=== PATIENT | female | born 1965 | race Caucasian/White ===

== ENCOUNTER 2017-10-14 10:53 | Emergency (ER) | payer OTHER ==
[~2017-10-14] VITALS: Ht 160 cm; Wt 55.8 kg
--- NOTE | 2017-10-14 11:05 | ED CARDIAC/CP/PALPITATIONS ---
History of Present Illness General Chief Complaint: Headache Stated Complaint: SORENSON STATES HEART IS RACING Source: patient Exam Limitations: no limitations Vital Signs & Intake/Output Vital Signs & Intake/Output Vital Signs Date Time Temp Pulse Resp B/P B/P Pulse O2 O2 Flow FiO2 Mean Ox Delivery Rate 10/14 1428 64 126/70 10/14 1203 99 Room Air 10/14 1058 98.4 71 18 139/84 99 Room Air Allergies Coded Allergies: NO KNOWN ALLERGIES (03/15/15) Triage Note: 52F REPORTS FEELING LIGHTHEADED AND FOGGY X30 MINUTES. SAW PMD YESTERDAY AND DX WITH SINUS INFECTION, STARTED ON AMOXICILLIN AND TOOK SUDAFED YESTERDAY. PT REPORTS SHE FEELS LIKE HER HEART IS RACING AND SHE WAS SOB AT HOME. NO RESP DISTRESS OBSERVED IN TRIAGE. LUNGS CLEAR, RRR APICALLY. HX ANXIETY/DEPRESSION. SPEECH IS TENSE AND PRESSURED BUT ORGANIZED. Triage Nurses Notes Reviewed? yes Onset: Gradual Duration: better Timing: single episode today Quality/Severity: moderate Radiation: no radiation HPI: Patient is a 52-year-old female with a past medical history depression and anxiety who presents emergency room with concerns of a 2 day history of sinusitis where she was given a prescription of amoxicillin yesterday where patient is on her second dose of the medication patient has been complaining of heavy congestion nasal congestion sinus pressure and pain and generalized weakness fatigue however today after drinking a protein shake mixed with a an emergency powder packet she drank this smoothly and then 10 minutes later had acute onset of generalized weakness shortness of breath palpitations and dizziness. Patient states that symptoms have improved Denies any arm pain jaw pain nausea vomiting abdominal pain hemoptysis leg swelling (Diego Mar) Reconcile Medications Fluticasone Propionate (Flonase Allergy Relief) 50 MCG/ACTUATION SPRAY.SUSP 2 SPRAY GARRISON DAILY PRN CONGESTION Lamotrigine 100 MG TABLET 3 TAB PO DAILY ANXIETY (Reported) Quetiapine Fumarate 25 MG TABLET 2 TAB PO QPM SLEEP (Reported) (Hugo Draper DO) Past History Travel History Traveled to [place] past 21 day No Medical History Any Pertinent Medical History? see below for history Psychiatric: anxiety, depression Surgical History Surgical History: non-contributory Psychosocial History Who do you live with Family What is your primary language Sammarinese Tobacco Use: Never used Family History Hx Contributory? No (Diego Mar) Review of Systems Review of Systems Constitutional: Reports: see HPI. EENTM: Reports: see HPI. Respiratory: Reports: see HPI, short of breath. Cardiovascular: Reports: no symptoms. GI: Reports: no symptoms. Genitourinary: Reports: no symptoms. Musculoskeletal: Reports: no symptoms. Skin: Reports: no symptoms. Neurological/Psychological: Reports: see HPI. Hematologic/Endocrine: Reports: no symptoms. Immunologic/Allergic: Reports: no symptoms. All Other Systems: Reviewed and Negative (Diego Mar) Physical Exam Physical Exam General Appearance: no apparent distress, alert, comfortable Head: atraumatic Eyes: Bilateral: normal appearance. Ears, Nose, Throat: normal pharynx, hearing grossly normal, sinus pain/drainage, nasal congestion Neck: normal inspection, supple, full range of motion Respiratory: normal breath sounds Cardiovascular: regular rate/rhythm Peripheral Pulses: 2+ radial (R) Gastrointestinal: normal bowel sounds, soft, non-tender Extremities: normal inspection, no edema Neurologic/Psych: no motor/sensory deficits, awake, alert, oriented x 3 Skin: intact, normal color, warm/dry Lymphatic: no anterior cervical stanislaw Core Measures ACS in differential dx? Yes CVA/TIA Diagnosis No Sepsis Present: No Sepsis Focused Exam Completed? No (Diego Mar) Progress Differential Diagnosis: AMI, aortic dissection, atrial fibrillation, cholecystitis, CHF/pulm edema, costochondritis, hyperkalemia, hypovolemia, hyperthyroid, hyperventilation, intracranial hemorrhage, musculoskeletal pain, myocarditis, pancreatitis, pericarditis, pneumonia, pneumothorax, PSVT, pulmonary embolism, PUD/GERD, PVCs/PACs, respiratory failure, sepsis, unstable angina, V-fib/V-Tach, WPW syndrome Plan of Care: Orders Procedure Date/time Status THYROID STIMULATING HORMONE 10/14 1254 Complete MAGNESIUM 10/14 1254 Complete FREE T4 10/14 1254 Complete Telemetry/Quality Assurance Engineer 10/14 1234 Active TROPONIN LEVEL 10/14 1234 Complete D-DIMER 10/14 1234 Complete COMPREHENSIVE METABOLIC PANEL 10/14 1234 Complete CBC WITHOUT DIFFERENTIAL 10/14 1234 Complete EKG 10/14 1054 Active Laboratory Tests 10/14/17 1254: Anion Gap 17 H, Estimated GFR > 60, BUN/Creatinine Ratio 17.1, Glucose 90, Calcium 10.1, Magnesium 2.1, Total Bilirubin 0.5, AST 19, ALT 25, Alkaline Phosphatase 55, Troponin I < 0.01, Total Protein 8.1, Albumin 4.8, Globulin 3.3, Albumin/Globulin Ratio 1.5, TSH 0.159 L, Free T4 1.04, D-Dimer High Sensitivty < 200, CBC w Diff NO MAN DIFF REQ, RBC 5.13, MCV 84.2, MCH 27.6, MCHC 32.8 L, RDW 13.8, MPV 7.8, Gran % 76.3 H, Lymphocytes % 14.8 L, Monocytes % 7.8, Eosinophils % 0.9, Basophils % 0.2, Absolute Granulocytes 5.9, Absolute Lymphocytes 1.2, Absolute Monocytes 0.6, Absolute Eosinophils 0.1, Absolute Basophils 0 10/14/17 1246: Magnesium Cancelled, TSH Cancelled, Free T4 Cancelled Differential diagnoses include sinusitis pharyngitis adverse drug reaction Heart score 1 DD has a past month and exam findings there is consideration of adverse reaction to the emergency supplementation taken prior to the onset of symptoms and patient having concomitant sinusitis. Patient had unremarkable blood work EKG and chest x-ray. On discharge patient looks well no apparent stress and will comply with discharge INSTRUCTIONS and had no questions Diagnostic Imaging: Viewed by Me: Radiology Read. Radiology Impression: no acute abnormality, no fracture Initial ED EKG: normal intervals, normal p-waves, normal QRS complex, 65 BPM, NSR Comments: PATIENT: MITALI JAIMES PRESENT AGE: 52 PATIENT ACCOUNT NO: [id number] : 67 LOCATION: [facility] ([facility]) ORDERING PHYSICIAN: Diego BREEN SERVICE DATE: 10/14/17 EXAM TYPE: RAD - XRY-CHEST XRAY, TWO VIEWS EXAMINATION: CHEST 2 VIEWS CLINICAL INFORMATION: Shortness of breath. COMPARISON: None. TECHNIQUE: PA and lateral views of the chest were obtained. FINDINGS: The cardiac silhouette is not enlarged. The mediastinal and hilar contours are unremarkable. There are neither pleural effusions nor pneumothoraces. There are no consolidations. The osseous structures are unremarkable. IMPRESSION: No evidence for acute disease. DICTATED BY: Silverio Chapman MD DATE/TIME DICTATED:10/14/171403 TELECOMMUNICATION LINES REPAIRER:ZEFERINO DATE/TIME TRANSCRIBED:10/14/171403 (Diego Mar) Departure Departure Disposition: HOME OR SELF CARE Condition: Stable Clinical Impression Primary Impression: Dizziness Secondary Impressions: Sinusitis Referrals: Isaías CAPUTO,Modesto Alvarez Additional Instructions: As discussed begin ween-cby-pwoiann Sudafed for congestion begin the prescription of Flonase Departure Forms: Customer Survey General Discharge Information Prescriptions: Current Visit Scripts Fluticasone Propionate (Flonase Allergy Relief) 2 SPRAY GARRISON DAILY PRN CONGESTION #1 BOT (Diego Mar) PA/CITY DRIVER Co-Sign Statement Statement: ED Attending supervision documentation- [] I saw and evaluated the patient. I have also reviewed all the pertinent lab results and diagnostic results. I agree with the findings and the plan of care as documented in the PA's/CITY DRIVER's documentation. [x] I have reviewed the ED Record and agree with the PA's/CITY DRIVER's documentation. [] Additions or exceptions (if any) to the PAs/CITY DRIVER's note and plan are summarized below: [] (Hugo Draper DO) Critical Care Note Critical Care Note Critical Care Time: non-applicable (Diego Mar)
[2017-10-14] MEDS ORDERED: LAMOTRIGINE100 M2 PO (12:13)
[2017-10-14] MEDS ORDERED: QUETIAPINE FUMA25 M1 PO (12:14)
[2017-10-14 13:06] LABS: ABSOLUTE BASOPHIL COUNT 0 /CUMM (0.0-0.2); ABSOLUTE EOSINOPHIL COUNT 0.1 /CUMM (0.0-0.7); ABSOLUTE GRANULOCYTE CT 5.9 /CUMM (1.4-6.5); ABSOLUTE LYMPH COUNT 1.2 /CUMM (1.2-3.4); ABSOLUTE MONOCYTE COUNT 0.6 /CUMM (0.10-0.60); BASOPHIL % 0.2 % (0.0-2.0); EOSINOPHIL % 0.9 % (0-5); GRANULOCYTE % 76.3 % (42.2-75.2); HEMATOCRIT 43.2 % (37-47); MEAN CORPUSCULAR HGB 27.6 PG (27.0-31.0); MEAN CORPUSCULAR HGB CONC 32.8 G/DL (33.0-37.0); MEAN CORPUSCULAR VOLUME 84.2 FL (81.0-99.0); MEAN PLATELET VOLUME 7.8 FL (7.4-10.4); PLATELET COUNT 293 /CUMM (130-400); RBC DISTRIBUTION WIDTH 13.8 % (11.5-14.5); RED BLOOD CELL CT 5.13 /CUMM (4.20-5.40); WHITE BLOOD CELL COUNT 7.8 /CUMM (4.8-10.8)
--- NOTE | 2017-10-14 14:08 | RADIOLOGY REPORT ---
EXAMINATION: CHEST 2 VIEWS CLINICAL INFORMATION: Shortness of breath. COMPARISON: None. TECHNIQUE: PA and lateral views of the chest were obtained. FINDINGS: The cardiac silhouette is not enlarged. The mediastinal and hilar contours are unremarkable. There are neither pleural effusions nor pneumothoraces. There are no consolidations. The osseous structures are unremarkable. IMPRESSION: No evidence for acute disease.
[2017-10-14] MEDS ORDERED: FLONASE ALLERG9.9 ML NAS (14:18)
[2017-10-14 14:28] VITALS: BP 126/70
== END 2017-10-14 14:29 ==
LOC: ERH 10:53
PROVIDERS: Physician Assistant
DX: J32.9 Chronic sinusitis, unspecified (principal); R42 Dizziness and giddiness
CPT/HCPCS: 71046; 93005; 93010